=== PATIENT | female | born 1980 | race Caucasian/White ===

== ENCOUNTER 2020-05-13 16:58 | Inpatient (IN) | payer OTHER ==
[~2020-05-13] VITALS: Ht 149.9 cm; Wt 56.7 kg
[2020-05-13] MEDS ORDERED: LABE100T5 MT (17:50)
[2020-05-13] MEDS ORDERED: PREN-118 MT (17:51)
[2020-05-13] MEDS ORDERED: CHOL400D7 MT (17:52)
[2020-05-13] MEDS ORDERED: CITA20TA19 MT (17:53)
[2020-05-13] MEDS ORDERED: DOXY25TA29 PO ×2 (17:54→17:55)
[2020-05-13] MEDS ORDERED: LIDOCAINE HCL 2%/EPINEPHRINE 1:100,000 20 ML VIAL INFIL ONE (18:00)
[2020-05-13] MEDS ORDERED: DEXT 5%/LR + PITOCIN 20UNITS/L 1,000 ML IV SCH (18:15)
[2020-05-13] MEDS ORDERED: LIDOCAINE HCL 1% 20ML VIAL (Pyxis) INJ INFIL SCH (18:15)
[2020-05-13] MEDS ORDERED: BUTORPHANOL TARTRATE 2 MG/ML VIAL IV PRN (18:15)
[2020-05-13] MEDS ORDERED: NALOXONE HCL 0.4 MG/ML 1ML VIAL IM PRN (18:15)
[2020-05-13] MEDS ORDERED: METHYLERGONOVINE MALEATE 0.2 MG/ML IM PRN (18:15)
[2020-05-13] MEDS ORDERED: ROPIVACAINE HCL/PF EPIDURAL 200 ML EPI SCH (18:30)
[2020-05-13] MEDS ORDERED: MISOPROSTOL 100MCG TABLET PO SCH (19:00)
[2020-05-13 19:20] LABS: BASOPHILS % 0.4 % (0.0-2.0); EOSINOPHILS % 2.8 % (0.0-5.0); HEMATOCRIT. 31.5 % (36.0-48.0); HEMOGLOBIN. 10.8 g/dL (12.0-16.0); LYMPHOCYTES % 15.7 % (20.0-50.0); MEAN CORPUSCULAR VOLUME 90.4 fL (81.0-99.0); MONOCYTES % 7.6 % (2.0-8.0); NEUTROPHILS % 73.5 % (40.0-76.0); PLATELET 206 x1000/uL (130-400); RED BLOOD CELL COUNT 3.48 mill/uL (4.2-5.4); RED CELL DISTRIBUTION WIDTH 14.3 % (11.6-14.6)
[2020-05-13 19:32] LABS: INR 0.9; PARTIAL THROMBOPLASTIN TIME 28.3 sec (23.4-31.0); PROTHROMBIN TIME 9.9 sec (9.6-11.0)
[2020-05-13 19:36] LABS: CLARITY URINE CLOUDY (CLEAR); COLOR URINE YELLOW (YELLOW); KETONES URINE NEGATIVE (NEGATIVE); LEUKOCYTE ESTERASE URINE NEGATIVE (NEGATIVE); NITRITE URINE NEGATIVE (NEGATIVE); OCCULT BLOOD URINE NEGATIVE (NEGATIVE); PH URINE 6.5 (4.5-8.0); PROTEIN URINE NEGATIVE (NEGATIVE); SPECIFIC GRAVITY URINE 1.021 (1.005-1.030)
[2020-05-13] MEDS: LABETALOL HCL 100MG TABLET PO SCH (19:36)
[2020-05-13] MEDS: LACTATED RINGERS 1,000 ML IV SCH ×2 (19:42→23:36)
[2020-05-13 19:47] LABS: *AMPHETAMINES SCREEN URINE NEGATIVE (NEGATIVE); CANNABINOID URINE SCREEN NEGATIVE (NEGATIVE); METHADONE URINE SCREEN NEGATIVE (NEGATIVE); OPIATES URINE SCREEN NEGATIVE (NEGATIVE); PHENCYCLIDINE URINE SCREEN NEGATIVE (NEGATIVE)
[2020-05-13 19:48] LABS: *BARBITURATES SCREEN URINE NEGATIVE (NEGATIVE); *BENZODIAZEPINES SCREEN URINE NEGATIVE (NEGATIVE); *COCAINE SCREEN URINE NEGATIVE (NEGATIVE)
[2020-05-13 20:07] LABS: HEPATITIS B SURFACE ANTIGEN NEGATIVE
[2020-05-14] VITALS (11 sets, daily range): BP systolic 110–121; BP diastolic 68–78
[2020-05-14] MEDS ORDERED: MORPHINE SULFATE/PF 1MG/ML 10ML AMP ONE (05:38)
[2020-05-14] MEDS ORDERED: FENTANYL CITRATE/PF 50MCG/ML 2ML VIAL ONE (05:38)
[2020-05-14] MEDS ORDERED: TERBUTALINE SULFATE 1MG/ML VIAL ONE (05:39)
[2020-05-14] MEDS ORDERED: ONDANSETRON HCL 4MG/2ML INJ ONE ×2 (06:04→06:40)
[2020-05-14] MEDS ORDERED: BUPIVACAINE HCL/PF 0.25% (2.5MG/ML) 10ML ONE (06:04)
[2020-05-14] MEDS ORDERED: HEMORRHOIDAL SUPP PR PRN (06:15)
[2020-05-14] MEDS ORDERED: RHO(D) IMMUNE GLOBULIN 300 MCG/SYR IM PRN (06:15)
[2020-05-14] MEDS ORDERED: BISACODYL 10MG SUPP PR PRN (06:15)
[2020-05-14] MEDS ORDERED: LANOLIN OINT 7GM TUBE TOP PRN (06:15)
[2020-05-14] MEDS ORDERED: ONDANSETRON HCL 4MG/2ML INJ IV PRN (06:15)
[2020-05-14] MEDS ORDERED: AMPICILLIN 1,000 MG in SODIUM CHLORIDE 0.9% 50 ML IV SCH (06:30)
[2020-05-14] MEDS ORDERED: KETOROLAC 60MG/2ML VIAL IM ONE (06:39)
[2020-05-14] MEDS ORDERED: CEFAZOLIN SODIUM 1000MG/VIAL ONE (06:40)
[2020-05-14] MEDS ORDERED: OXYTOCIN 10 UNITS/ML 1ML ONE (06:40)
[2020-05-14] MEDS ORDERED: CLINDAMYCIN 900 MG PREMIX 50 ML IV ONE (06:40)
[2020-05-14] MEDS ORDERED: CLINDAMYCIN 900 MG PREMIX 50 ML IV SCH (07:00)
[2020-05-14] MEDS ORDERED: GENTAMICIN 120MG PREMIX 100 ML IV SCH (08:00)
[2020-05-14] MEDS ORDERED: NALOXONE HCL 0.4 MG/ML 1ML VIAL IV PRN (08:15)
[2020-05-14] MEDS ORDERED: HYDROCODONE/ACETAMINOPHEN 5/325MG TABLET PO SCH (08:15)
[2020-05-14] MEDS ORDERED: BUTORPHANOL TARTRATE 2 MG/ML VIAL IV PRN (08:15)
[2020-05-14] MEDS ORDERED: DIPHENHYDRAMINE 50MG/ML VIAL IV PRN (08:15)
[2020-05-14 09:35] LABS: HEMATOCRIT. 24.7 % (36.0-48.0); MEAN CORPUSCULAR HEMOGLOBIN 31.1 pg (28.0-32.0); MEAN CORPUSCULAR VOLUME 114.8 fL (81.0-99.0); MEAN PLATELET VOLUME 9.9 fl (7.4-10.4); PLATELET 110 x1000/uL (130-400); RED BLOOD CELL COUNT 2.16 mill/uL (4.2-5.4); RED CELL DISTRIBUTION WIDTH 16.2 % (11.6-14.6)
[2020-05-14] MEDS: KETOROLAC 30MG/ML VIAL IV SCH ×2 (09:38→18:05)
[2020-05-14 09:44] LABS: HEMOGLOBIN. 6.7 g/dL (12.0-16.0)
[2020-05-14] MEDS: AMPICILLIN 1,000 MG in SODIUM CHLORIDE 0.9% 50 ML IV SCH ×2 (09:48→16:06)
[2020-05-14 10:19] LABS: PLATELET ESTIMATE DECREASED
[2020-05-14 12:23] LABS: CHLORIDE 103 mEq/L (98-107)
[2020-05-14] MEDS: LABETALOL HCL 100MG TABLET PO SCH (13:35)
[2020-05-14] MEDS: DEXT 5%/LR + PITOCIN 20UNITS/L 1,000 ML IV SCH (14:46)
[2020-05-14] MEDS: CLINDAMYCIN HCL 150MG CAPSULE PO SCH (21:34)
[2020-05-14] MEDS: CEFTRIAXONE 1,000 MG in DEXTROSE 5% WATER 50 ML IV SCH (21:34)
[2020-05-14] MEDS ORDERED: GENTAMICIN 80MG PREMIX 100 ML IV SCH (23:00)
[2020-05-15 00:58] LABS: BASOPHILS % 0.2 % (0.0-2.0); EOSINOPHILS % 1.5 % (0.0-5.0); HEMATOCRIT. 34.5 % (36.0-48.0); HEMOGLOBIN. 11.6 g/dL (12.0-16.0); LYMPHOCYTES % 8.9 % (20.0-50.0); MEAN CORPUSCULAR HEMOGLOBIN 30.3 pg (28.0-32.0); MEAN CORPUSCULAR VOLUME 90.2 fL (81.0-99.0); MEAN PLATELET VOLUME 8.2 fl (7.4-10.4); MONOCYTES % 5.1 % (2.0-8.0); NEUTROPHILS % 84.3 % (40.0-76.0); PLATELET 153 x1000/uL (130-400); RED BLOOD CELL COUNT 3.82 mill/uL (4.2-5.4)
[2020-05-15] MEDS: LABETALOL HCL 100MG TABLET PO SCH ×3 (01:14→21:23)
[2020-05-15 01:20] VITALS: BP 120/75
[2020-05-15] MEDS: KETOROLAC 30MG/ML VIAL IV SCH (02:50)
[2020-05-15] MEDS ORDERED: KETOROLAC 30MG/ML VIAL IV SCH (03:00)
[2020-05-15] MEDS: CLINDAMYCIN HCL 150MG CAPSULE PO SCH ×4 (04:08→21:21)
[2020-05-15 04:10] VITALS: BP 105/69
[2020-05-15] MEDS: DEXT 5%/LR + PITOCIN 20UNITS/L 1,000 ML IV SCH (05:43)
[2020-05-15 07:17] LABS: BASOPHILS % 0.2 % (0.0-2.0); EOSINOPHILS % 1.6 % (0.0-5.0); HEMATOCRIT. 32.5 % (36.0-48.0); LYMPHOCYTES % 8.4 % (20.0-50.0); MEAN CORPUSCULAR HEMOGLOBIN 30.8 pg (28.0-32.0); MEAN PLATELET VOLUME 8.5 fl (7.4-10.4); MONOCYTES % 6.3 % (2.0-8.0); NEUTROPHILS % 83.5 % (40.0-76.0); PLATELET 158 x1000/uL (130-400); RED BLOOD CELL COUNT 3.57 mill/uL (4.2-5.4)
[2020-05-15 07:19] LABS: CHLORIDE 102 mEq/L (98-107)
[2020-05-15 07:30] VITALS: BP 115/73
[2020-05-15] MEDS: FERROUS SULFATE 325MG TABLET PO SCH ×3 (08:06→17:49)
[2020-05-15] MEDS: PRENATAL VIT/FE FUMARATE/FA TABLET PO SCH (08:06)
[2020-05-15] MEDS: MAGNESIUM/ALUMINUM HYDROXIDE/SIMETHICONE 30ML UDC PO SCH ×3 (08:07→21:23)
[2020-05-15] MEDS: SIMETHICONE 80MG TABLET CHEW PO SCH ×3 (08:07→21:22)
[2020-05-15 16:00] VITALS: BP 122/77
[2020-05-15] MEDS: IBUPROFEN 800MG TABLET PO SCH (16:27)
[2020-05-15 20:00] VITALS: BP 132/83
[2020-05-15] MEDS: CEFTRIAXONE 1,000 MG in DEXTROSE 5% WATER 50 ML IV SCH (21:21)
[2020-05-15] MEDS: DOCUSATE SODIUM 100MG CAPSULE PO SCH (21:24)
[2020-05-16] MEDS: CLINDAMYCIN HCL 150MG CAPSULE PO SCH ×4 (03:49→20:56)
[2020-05-16 04:00] VITALS: BP 139/85
[2020-05-16] MEDS: IBUPROFEN 800MG TABLET PO SCH ×3 (04:01→15:21)
[2020-05-16 05:32] LABS: CHLORIDE 104 mEq/L (98-107)
[2020-05-16 05:59] LABS: BASOPHILS % 0.3 % (0.0-2.0); EOSINOPHILS % 2.4 % (0.0-5.0); HEMATOCRIT. 35.5 % (36.0-48.0); HEMOGLOBIN. 11.8 g/dL (12.0-16.0); LYMPHOCYTES % 13.3 % (20.0-50.0); MEAN CORPUSCULAR HEMOGLOBIN 30.5 pg (28.0-32.0); MEAN CORPUSCULAR VOLUME 91.3 fL (81.0-99.0); MEAN PLATELET VOLUME 8.8 fl (7.4-10.4); MONOCYTES % 6.2 % (2.0-8.0); NEUTROPHILS % 77.8 % (40.0-76.0); PLATELET 190 x1000/uL (130-400); RED BLOOD CELL COUNT 3.88 mill/uL (4.2-5.4); RED CELL DISTRIBUTION WIDTH 15.2 % (11.6-14.6)
[2020-05-16 08:00] VITALS: BP 133/81
[2020-05-16] MEDS: SIMETHICONE 80MG TABLET CHEW PO SCH ×2 (09:32→20:56)
[2020-05-16] MEDS: PRENATAL VIT/FE FUMARATE/FA TABLET PO SCH (09:32)
[2020-05-16] MEDS: LABETALOL HCL 100MG TABLET PO SCH ×2 (09:33→20:57)
[2020-05-16 12:00] VITALS: BP 132/80
[2020-05-16 15:00] VITALS: BP 131/80
[2020-05-16] MEDS: FERROUS SULFATE 325MG TABLET PO SCH (15:21)
[2020-05-16 19:30] VITALS: BP 148/99
[2020-05-16] MEDS: DOCUSATE SODIUM 100MG CAPSULE PO SCH (20:57)
[2020-05-16] MEDS: CEFTRIAXONE 1,000 MG in DEXTROSE 5% WATER 50 ML IV SCH (20:57)
[2020-05-16] MEDS: MAGNESIUM/ALUMINUM HYDROXIDE/SIMETHICONE 30ML UDC PO SCH (20:58)
[2020-05-17] MEDS: IBUPROFEN 800MG TABLET PO SCH ×3 (03:33→13:20)
[2020-05-17] MEDS: CLINDAMYCIN HCL 150MG CAPSULE PO SCH ×2 (03:36→09:13)
[2020-05-17 04:00] VITALS: BP 146/81
[2020-05-17 07:30] VITALS: BP 140/90
[2020-05-17] MEDS: MAGNESIUM/ALUMINUM HYDROXIDE/SIMETHICONE 30ML UDC PO SCH (08:34)
[2020-05-17] MEDS: PRENATAL VIT/FE FUMARATE/FA TABLET PO SCH (08:34)
[2020-05-17] MEDS: FERROUS SULFATE 325MG TABLET PO SCH (08:34)
[2020-05-17] MEDS: SIMETHICONE 80MG TABLET CHEW PO SCH (08:35)
[2020-05-17] MEDS: LABETALOL HCL 100MG TABLET PO SCH (08:37)
[2020-05-17 10:00] VITALS: BP 128/77
== END 2020-05-17 14:30 | disposition home or self-care (01) | DRG 540 ==
LOC: OBSVTOIN 16:58 → 8 EST LDRP 16:58 → 8EST 05-14 08:18
PROVIDERS: ADMIT Obstetrics & Gynecology; ATTEND Obstetrics & Gynecology
PROC: 30233N1 Transfusion of Nonautologous Red Blood Cells into Peripheral Vein, Percutaneous Approach (ICD-10-PCS; 2020-05-14)
PROC: 10D00Z1 Extraction of Products of Conception, Low, Open Approach (ICD-10-PCS; principal; 2020-05-15)
DX: O36.5930 Maternal care for other known or suspected poor fetal growth, third trimester, not applicable or unspecified (principal); O11.4 Pre-existing hypertension with pre-eclampsia, complicating childbirth; O76 Abnormality in fetal heart rate and rhythm complicating labor and delivery; O61.9 Failed induction of labor, unspecified; O99.284 Endocrine, nutritional and metabolic diseases complicating childbirth; E78.5 Hyperlipidemia, unspecified; R31.9 Hematuria, unspecified; D62 Acute posthemorrhagic anemia; O90.81 Anemia of the puerperium; N93.9 Abnormal uterine and vaginal bleeding, unspecified; O67.9 Intrapartum hemorrhage, unspecified; O99.344 Other mental disorders complicating childbirth; F41.9 Anxiety disorder, unspecified; Z3A.38 38 weeks gestation of pregnancy; Z37.0 Single live birth; Z88.8 Allergy status to other drugs, medicaments and biological substances; Z91.010 Allergy to peanuts
CPT/HCPCS: 36415; 74018; 80048; 80305; 80359; 81003; 82962; 85025; 86592; 86703; 86762; 86850; 86900; 86920; 87340; 88307; J0290; J0690; J0696; J1200; J1580; J1885; J2274; J2405; J2590; J2795; J3010; J3105; J3490; J7060; P9016; A4315

== ENCOUNTER 2021-06-13 15:32 | Emergency (ER) | payer MEDICAID, OTHER ==
[~2021-06-13] VITALS: Ht 157.5 cm; Wt 50.0 kg
[2021-06-13] MEDS ORDERED: ACETAMINOPHEN 325MG TABLET PO STA (15:53)
[2021-06-13 19:45] LABS: HEMATOCRIT. 37.5 % (36.0-48.0); HEMOGLOBIN. 12.8 g/dL (12.0-16.0); MEAN CORPUSCULAR HEMOGLOBIN 30.6 pg (28.0-32.0); MEAN CORPUSCULAR VOLUME 89.4 fL (81.0-99.0); MEAN PLATELET VOLUME 7.1 fl (7.4-10.4); PLATELET 259 x1000/uL (130-400); RED BLOOD CELL COUNT 4.19 mill/uL (4.2-5.4); RED CELL DISTRIBUTION WIDTH 12.7 % (11.6-14.6)
[2021-06-13 19:57] LABS: CHLORIDE 104 mEq/L (98-107)
[2021-06-13 19:59] LABS: HCG SCREEN NEGATIVE
[2021-06-13 20:01] LABS: ETHANOL BLOOD < 10 mg/dL
[2021-06-13] MEDS ORDERED: ACETAMINOPHEN 325MG TABLET PO NR (20:15)
[2021-06-13 21:25] LABS: PLATELET ESTIMATE NORMAL
[2021-06-13] MEDS ORDERED: KETOROLAC 30MG/ML VIAL IM NR (22:00)
[2021-06-14 00:17] LABS: CLARITY URINE CLOUDY (CLEAR); COLOR URINE DARK YELLOW (YELLOW); KETONES URINE NEGATIVE (NEGATIVE); LEUKOCYTE ESTERASE URINE 1+ (NEGATIVE); NITRITE URINE NEGATIVE (NEGATIVE); OCCULT BLOOD URINE NEGATIVE (NEGATIVE); PH URINE 6.5 (4.5-8.0); PROTEIN URINE NEGATIVE (NEGATIVE); SPECIFIC GRAVITY URINE 1.022 (1.005-1.030)
[2021-06-14 00:40] LABS: *BARBITURATES SCREEN URINE NEGATIVE (NEGATIVE); *BENZODIAZEPINES SCREEN URINE NEGATIVE (NEGATIVE); *COCAINE SCREEN URINE NEGATIVE (NEGATIVE); METHADONE URINE SCREEN NEGATIVE (NEGATIVE); OPIATES URINE SCREEN NEGATIVE (NEGATIVE); PHENCYCLIDINE URINE SCREEN NEGATIVE (NEGATIVE)
[2021-06-14 00:43] LABS: *AMPHETAMINES SCREEN URINE PRESUMTIVE POSITIVE (NEGATIVE); CANNABINOID URINE SCREEN PRESUMTIVE POSITIVE (NEGATIVE)
[2021-06-14] MEDS ORDERED: NITR-87 MT (00:45)
[2021-06-14] MEDS ORDERED: IBUP-2028 MT (00:45)
[2021-06-14 01:16] VITALS: BP 114/74
== END 2021-06-14 01:21 | disposition home or self-care (01) ==
LOC: ER 15:32
DX: R10.11 Right upper quadrant pain (principal); N39.0 Urinary tract infection, site not specified; K82.9 Disease of gallbladder, unspecified; R93.2 Abnormal findings on diagnostic imaging of liver and biliary tract; F15.10 Other stimulant abuse, uncomplicated; F12.10 Cannabis abuse, uncomplicated; F13.10 Sedative, hypnotic or anxiolytic abuse, uncomplicated; I10 Essential (primary) hypertension
CPT/HCPCS: 36415; 71045; 76705; 80053; 80305; 80320; 81003; 81025; 83690; 84703; 85025; 96372; 99291; J1885; G0480